=== PATIENT | male | born 1950 | race Caucasian/White ===

== ENCOUNTER 2018-06-12 15:15 | Emergency (ER) | payer OTHER ==
[~2018-06-12] VITALS: Ht 182.9 cm; Wt 83.9 kg
[2018-06-12] MEDS ORDERED: HYZAAR 100-251 EACH (15:36)
[2018-06-12] MEDS ORDERED: NORVASC2.5 MG (15:36)
[2018-06-12] MEDS ORDERED: TOPROL XL50 M1 (15:36)
== END 2018-06-12 20:00 | disposition home or self-care (01) ==
LOC: ER 15:15
DX: N39.0 Urinary tract infection, site not specified (principal); B96.29 Other Escherichia coli [E. coli] as the cause of diseases classified elsewhere

== ENCOUNTER 2018-07-12 15:55 | Outpatient (CLI) | payer OTHER ==
[~2018-07-12 15:55] MED LIST: HYZAAR 100-251 EACH; NORVASC2.5 MG; TOPROL XL50 M1
== END 2018-07-12 16:13 | disposition home or self-care (01) ==
LOC: LAB 15:55
DX: N30.00 Acute cystitis without hematuria (principal); B96.29 Other Escherichia coli [E. coli] as the cause of diseases classified elsewhere

== ENCOUNTER 2018-07-23 14:11 | Outpatient (CLI) | payer OTHER | END 2018-07-23 17:02 | disposition home or self-care (01) | LOC: LAB 14:11 | DX: N30.00 Acute cystitis without hematuria (principal) ==

== ENCOUNTER 2018-08-27 15:50 | Outpatient (CLI) | payer OTHER | END 2018-08-27 16:02 | disposition home or self-care (01) | LOC: LAB 15:50 | DX: N30.00 Acute cystitis without hematuria (principal) ==

== ENCOUNTER 2019-11-23 16:07 | Outpatient (CLI) | payer OTHER | END 2019-11-23 16:18 | disposition home or self-care (01) | LOC: LAB 16:07 | PROVIDERS: ATTEND Urology | DX: R50.9 Fever, unspecified (principal) ==

== ENCOUNTER → 2019-12-22 15:35 | Outpatient (CLI) | payer OTHER | END | disposition home or self-care (01) | LOC: LAB 15:35 | PROVIDERS: ATTEND Internal Medicine Cardiovascular Disease | DX: N39.0 Urinary tract infection, site not specified (principal); Z95.2 Presence of prosthetic heart valve; R50.9 Fever, unspecified; I35.1 Nonrheumatic aortic (valve) insufficiency ==

== ENCOUNTER 2020-02-13 15:23 | Outpatient (CLI) | payer OTHER | END 2020-02-13 15:30 | disposition home or self-care (01) | LOC: LAB 15:23 | PROVIDERS: ATTEND Internal Medicine Cardiovascular Disease | DX: E03.8 Other specified hypothyroidism (principal); K85.90 Acute pancreatitis without necrosis or infection, unspecified; I11.9 Hypertensive heart disease without heart failure ==

== ENCOUNTER → 2020-02-13 | Outpatient (CLI) | payer OTHER | END | disposition home or self-care (01) | LOC: EDBD 12:54 → TOM 12:54 | PROVIDERS: ATTEND Internal Medicine Cardiovascular Disease | DX: N20.0 Calculus of kidney (principal); K80.80 Other cholelithiasis without obstruction ==

== ENCOUNTER 2020-03-29 16:44 | Outpatient (CLI) | payer OTHER | END 2020-03-29 16:51 | disposition home or self-care (01) | LOC: LAB 16:44 | PROVIDERS: ATTEND Urology | DX: R50.9 Fever, unspecified (principal) ==

== ENCOUNTER → 2020-03-30 15:03 | Outpatient (CLI) | payer OTHER | END | disposition home or self-care (01) | LOC: LAB 15:03 | PROVIDERS: ATTEND Urology | DX: R50.9 Fever, unspecified (principal) ==

== ENCOUNTER → 2022-08-11 | Outpatient (CLI) | payer OTHER | END | disposition home or self-care (01) | LOC: TOM 08:20 | PROVIDERS: ATTEND Internal Medicine Hepatology | DX: K62.5 Hemorrhage of anus and rectum (principal) ==